=== PATIENT | male | born 1980 | race Caucasian/White ===

== ENCOUNTER → 2019-04-17 13:02 | Emergency (ER) | payer OTHER ==
[~2019-04-17 13:02] MED LIST: Ciprofloxacin 400MG IVPREMIX(* 400 MG/200 ML BAG IVPB ONE; Clindamycin 600 MG/D5W BAG(*) 600 MG/50 ML BAG IV ONE
--- NOTE | 2019-04-17 13:40 | ED ---
Lower Extremity - HPI Summary HPI Summary: Patient is a 38-year-old male who presents to emergency department for increased redness and pain to his left posterior leg. Pt. states about two weeks ago he was wearing a dirty wet suit in a pool. He states after he felt some irritation to the back of his right leg. He states area progressively became red and an abscess formed and drained. Pt. states he then went swimming in the ocean last week and posterior leg became redder. He was placed on bactrim and prednisone by a family friend physician. Pt. states he is on day 7 of bactrim. Pt. states redness was outlined yesterday and today redness has exceeded bordered. Pt. otherwise is healthy and denies fever, chills, N/V. Sxs are moderate in severity. Touching area makes sxs worse. Nothing improves sxs. - History of Current Complaint Chief Complaint: EDExtremityLower Stated Complaint: RT KNEE INFECTION PER PT Time Seen by Provider: 04/17/19 13:39 Hx Obtained From: Patient Pain Intensity: 3 - Allergies/Home Medications Allergies/Adverse Reactions: Allergies Allergy/AdvReac Type Severity Reaction Status Date / Time No Known Allergies Allergy Verified 04/17/19 13:10 Home Medications: Home Medications Sulfamethox/Trimethoprim DS* [Bactrim DS 800/160 TAB*] 1 tab PO BID 04/17/19 [ History Confirmed 04/17/19] PMH/Surg Hx/FS Hx/Imm Hx Previously Healthy: Yes Infectious Disease History: No Infectious Disease History: Denies: Traveled Outside the [place] in Last 30 Days - Family History Known Family History: Positive: Non-Contributory - Social History Occupation: Employed Full-time Lives: With Family Review of Systems Constitutional: Negative Negative: Fever, Chills Gastrointestinal: Negative Negative: Vomiting, Nausea Positive: Other - redness to right posterior leg All Other Systems Reviewed And Are Negative: Yes Physical Exam Triage Information Reviewed: Yes Vital Signs On Initial Exam: Initial Vitals Temp Pulse Resp BP Pulse Ox 98.5 F 104 16 129/88 96 04/17/19 13:06 04/17/19 13:06 04/17/19 13:06 04/17/19 13:06 04/17/19 13:06 Vital Signs Reviewed: Yes Appearance: Positive: Well-Appearing - Pt. lying on bed in NAD. present. Skin: Positive: Warm, Dry Head/Face: Positive: Normal Head/Face Inspection Eyes: Positive: Normal, EOMI Neck: Positive: Supple Musculoskeletal: Positive: Other - Noted to posterior mid right LE there is a large area of erythmea and warmth. Small wound in center. Area is indurated without fluctuance. No skin necrosis. Full ROM of knee without pain. Neurological: Positive: Normal, CN Intact II-III Psychiatric: Positive: Affect/Mood Appropriate Diagnostics - Vital Signs Vital Signs Temp Pulse Resp BP Pulse Ox 04/17/19 13:06 98.5 F 104 16 129/88 96 - Laboratory Result Diagrams: 04/17/19 13:54 04/17/19 13:54 Lab Statement: Any lab studies that have been ordered have been reviewed, and results considered in the medical decision making process. Lower Extremity Course/Dx - Course Course Of Treatment: Pt. presenting with ongoing wound and cellulitis to right posterior leg. No joint involvement. Pt. without fever and well appearing. Labs and cultures obtained. CBC shows leukocytosis of 15k, could be secondary to prednisone. ID not available for consult for antibiotic coverage given exposures. Discussed with Dr. Valverde who recommends cipro and clinda, given an IV dose. Hospitalist consulted for possible admission given failing outpt. treatment. Pt. examined by Dr. Watkins who does not feel pt. meets admission criteria. He recommends continuing another week of bactrim and adding cipro for pseudomonas coverage. Pt. to see PCP in 2-3 days for wound check. To return to ER for increased redness, fever, or if concerned. - Diagnoses Differential Diagnosis/HQI/PQRI: Positive: Cellulitis, Infection Provider Diagnoses: Cellulitis, Wound cellulitis Discharge - Sign-Out/Discharge Documenting (check all that apply): Patient Departure Patient Received Moderate/Deep Sedation with Procedure: No - Discharge Plan Condition: Good Disposition: HOME Prescriptions: Ciprofloxacin TAB* [Cipro 500 MG TAB*] 500 mg PO BID #14 tab Sulfamethox/Trimethoprim DS* [Bactrim DS 800/160 TAB*] 1 tab PO BID #14 tab Patient Education Materials: Cellulitis (ED) Referrals: Anthony De León MD [Primary Care Provider] - Additional Instructions: Schedule a follow up appointment with PCP for wound check in 2-3 days Take antibiotics as directed Stop taking prednisone Apply warm compresses Keep wound clean and dry Return to ER for increased redness, pain, fever or if concerned - Billing Disposition and Condition Condition: GOOD Disposition: Home
[2019-04-17 14:02] LABS: ABS Basophils 0.1 10^3/ul (0-0.2); ABS Eosinophils 0.2 10^3/ul (0-0.6); ABS Lymphocytes 3.1 10^3/ul (1.0-4.8); ABS Monocytes 0.7 10^3/ul (0-0.8); ABS Neutrophils 10.9 10^3/ul (1.5-7.7); Eosinophil % 1.5 %; Hematocrit 43 % (42-52); Hemoglobin 14.5 g/dL (14.0-18.0); Lymphocyte % 20.5 %; Mean Corpuscular HGB Conc 34 g/dL (31-36); Mean Corpuscular Hemoglobin 28 pg (27-31); Mean Corpuscular Volume 82 fL (80-94); Mean Platelet Volume 7.3 fL (7.4-10.4); Platelet Count 278 10^3/uL (150-450); Red Blood Count 5.26 10^6 /uL (4.18-5.48); Red Cell Distribution Width 13 % (10-15)
[2019-04-17 14:18] LABS: Albumin 4.2 g/dL (3.2-5.2); Albumin/Globulin Ratio 1.6 (1-3); BUN/Creatinine Ratio 19.8 (8-20); C Reactive Protein 6.4 mg/L (<8.01); Calcium 9.1 mg/dL (8.6-10.3); EGFR Non-African American 86.8 (>60); Globulin 2.7 g/dL (2-4); Total Bilirubin 0.4 mg/dL (0.2-1.0); Total Protein 6.9 g/dL (6.4-8.9)
[2019-04-17 14:52] LABS: Potassium 3.6 mmol/L (3.5-5.0)
[2019-04-17 16:59] VITALS: BP 118/67
--- NOTE | 2019-04-17 20:19 | CONS ---
CC: Dr. De León.* CONSULTATION REPORT: DATE OF CONSULT: 04/17/19 PRIMARY CARE PROVIDER: Dr. De León. CONSULTATION REQUESTED FROM: Emergency room. REASON FOR CONSULTATION: Cellulitis. SOURCE OF INFORMATION: History obtained from interview with the patient and his . Reliability is good. HISTORY OF PRESENT ILLNESS: This is a 38-year-old man with no known past medical history or surgeries, who was in his usual state of health until approximately 11 days prior to presentation, developed irritation behind his right leg from a swim suit, which he felt had been dirty. He subsequently drove for 6 hours after which he started to have an area that felt both tight and red in the back of right leg. He felt about a 2-inch pustule. About 8 days prior to presentation he decided to swim in the ocean, after that it began to get worse. The area behind his right knee started to express pus, noted to have expanding erythema. Seven days prior to presentation, he consulted with a family friend, who is a physician's assistant shift supervisor, via telephone and video, and he was prescribed Bactrim as well as prednisone, which he remains on to-date. Following day, 6 days prior to presentation, he again had a 6-hour drive in a car, had increased erythema and drainage from the back of his leg. A family friend, also care provider, saw him yesterday while they were visiting and advised that he presents to the emergency room for further evaluation of his leg. He has had no fevers, chills or night sweats. His appetite has been excellent. He notes no significant complaints other than at the beginning it had been difficult to walk up and down stairs secondary to tenderness in the leg , which has largely resolved. His pain has improved and he feels as if the overall trajectory of the pain has improved. However, last night, the area was demarcated by his friend and was told that if it worsens he should present to the emergency room today. He noted that the area of erythema had partially extended past the boundaries laterally. So, he and his presented for further evaluation. PAST MEDICAL HISTORY: None. PAST SURGICAL HISTORY: No surgeries MEDICATIONS: Currently on Bactrim and prednisone that he was prescribed. Bactrim double strength and prednisone unknown dose. ALLERGIES: No known drug allergies. FAMILY HISTORY: Father had brain cancer. Grandmother with lymphoma. SOCIAL HISTORY: No tobacco. He has about 7 alcoholic drinks total per week. He is employed at [employer] in [place]. REVIEW OF SYSTEMS: As per HPI. Negative for 14 systems reviewed. PHYSICAL EXAM: Vitals: In the emergency room, temperature 98.5, pulse 104, oxygen 96, blood pressure 129/88. General: Well-appearing man. Cardiac: Regular rate and rhythm. Lungs: Clear to auscultation. Abdomen: Soft, nontender, nondistended. Extremities: Warm and well perfused. Skin: Area behind his right knee has subsequently been cleaned. He has an area of erythema medially behind his knee, extending laterally in bilateral directions, superior and inferior, approximately 2 inches. No area of induration. No pus to express. It is mildly tender. It does not involve any appreciable portion of the lateral aspect of his leg or thigh or his calf. He is alert and oriented x3. DIAGNOSTIC STUDIES/LAB DATA: Labs are notable for a white blood count of 15, 72.6% neutrophils, otherwise benign. ASSESSMENT AND PLAN: This 38-year-old man developed cellulitis approximately 11 days prior to presentation. He has been on antibiotics for approximately 8 days with Bactrim, in addition to steroids for unknown reason, with improvement in his symptomatology and overall crescendo of the cellulitis, although not complete remission, who presented to the emergency room after being evaluated as an outpatient in his home by family friend and having the area demarcated after which it extended marginally, approximately less than 1 mm in lateral direction. I believe the area of erythema in his popliteal fossa is largely secondary to irritation and moisture. The area was cleaned quite carefully by the nurse. Significant amount of skin was removed. He has received clindamycin and ciprofloxacin in the emergency room, which I agree with. I discussed with the care provider in the emergency room that I believe he should extend his Bactrim for another 7 days, as well as addition of ciprofloxacin 500 mg twice daily for additional 7 days, and he should see Dr. De León within the next 7 days for further evaluation of his cellulitis. Additionally, if he develops worsening expansion of erythema or systemic symptoms including fevers, chills, night sweats, fatigue, anorexia, nausea, vomiting, lightheadedness or loss of consciousness, he should again present to the emergency room. He should keep this area dry. Avoid swimming and exercising and keep leg elevated. The patient and is agree with this plan and will be discharged home to follow up with Dr. De León. [id number]/CPS #: [id number]
== END | disposition home or self-care (01) ==
LOC: ED 13:02
DX: S81.801A Unspecified open wound, right lower leg, initial encounter (principal); L03.115 Cellulitis of right lower limb; X58.XXXA Exposure to other specified factors, initial encounter; Y92.9 Unspecified place or not applicable
CPT/HCPCS: 36415; 80053; 85025; 86140; 87040; 87070; 87077; 87186; 87205; 87640; 87641; 96365; 96366; 99283; J0744